=== PATIENT | female | born 1995 | race Caucasian/White ===

== ENCOUNTER → 2021-08-27 10:53 | Outpatient (CLI) | payer BC, SELFPAY ==
--- NOTE | ~2021-08-27 | XR_ITS ---
EXAM: XR lumbar spine 2-3V DATE: 08/27/2021 11:31 HISTORY: Acute bilateral low back pain with right side sciatica . COMPARISON: None available. FINDINGS: 5 nonrib-bearing lumbar-type vertebral bodies. Pedicles intact. 2-3 mm retrolisthesis of L 3 on L4. 2 mm retrolisthesis of L4 on L5. Vertebral body heights preserved. Severe disc space narrowi ng and vacuum phenomenon at L5-S1. Lower lumbar facet sclerosis and hypertrophy. No fracture or dislo cation. IMPRESSION: Severe degenerative disc disease at L5-S1. Multilevel grade 1 listheses. Lower lumbar fac et arthropathy. Reviewed, dictated and finalized at location K. IMPRESSION: Severe degenerative disc disease at L5-S1. Multilevel grade 1 listh eses. Lower lumbar facet arthropathy.
== END ==
PROVIDERS: PCP Internal Medicine; Visit Provider Internal Medicine
DX: M47.817 Spondylosis without myelopathy or radiculopathy, lumbosacral region (principal); M54.41 Lumbago with sciatica, right side
CPT/HCPCS: 72100